=== PATIENT | female | born 1995 | race Caucasian/White ===

== ENCOUNTER → 2017-12-17 | Outpatient (CLI) | payer SELFPAY ==
[~2017-12-17] MED LIST: EPP3/2 IM; LORA10TA44 PO; PANADOL PO; [UNRECOGNIZED DRUG - OTHER] PO
--- NOTE | 2017-12-17 13:48 | DIAGNOSTIC IMAGING REPORT ---
ULTRASOUND GUIDED FINE NEEDLE ASPIRATION OF LEFT SUBOCCIPITAL LYMPH NODE CLINICAL HISTORY: Palpable lymph node. COMPARISON STUDY: Ultrasound August 06, 2017. PROCEDURE: Sonography of the left occipital region demonstrated 2 adjacent hypoechoic nodules suggestive of lymph nodes. The larger nodule measures 1.2 cm. This was targeted for fine needle aspiration. The procedure, risks and benefits were discussed with the patient and informed written consent was obtained. The procedure was performed by Dr. Doshi following a timeout. Skin was prepped and draped in sterile fashion and local anesthesia was achieved with 1% lidocaine. Under direct ultrasound guidance, 2 25-gauge fine needle aspirations were performed. Samples were deemed preliminarily adequate by pathology. Patient tolerated the procedure well and no immediate complications were evident. IMPRESSION: Ultrasound guided fine aspiration of a palpable 1.2 cm left suboccipital lymph node. Electronically signed by: Anthony Doshi M.D. 12/17/2017 1:47 PM Dictated Date/Time: 12/17/2017 1:36 PM
== END | disposition home or self-care (01) ==
LOC: C.ULTR 12:32
PROVIDERS: ATTEND Internal Medicine
DX: R59.0 Localized enlarged lymph nodes (principal)